=== PATIENT | male | born 2000 | race Caucasian/White ===

== ENCOUNTER → 2022-10-01 12:05 | Outpatient (CLI) | payer BC, SELFPAY ==
--- NOTE | ~2022-10-01 | XR_ITS ---
EXAMINATION: XR lumbar spine min 4V DATE: 10/01/2022 12:24 INDICATION: Low back pain TECHNIQUE: Anteroposterior, lateral, and bilateral oblique views of the lumbar spine, and cone-down l ateral view of the lumbosacral junction were obtained. COMPARISON: None. FINDINGS: Alignment is normal. Vertebral body heights are normal. Mild disc height loss at L3-L4 and L4-L5. No pars interarticularis defects. There is multilevel mild lumbar facet osteoarthritis most prominent on the right at L1-L2, L4-L5 and L5-S1 and on the left at L5-S1. IMPRESSION: 1. Mild lower lumbar spondylosis. Reviewed, dictated and finalized at location A.
== END ==
PROVIDERS: PCP Nurse Practitioner Family; Visit Provider Nurse Practitioner Family
DX: M54.50 Low back pain, unspecified (principal); M79.605 Pain in left leg; M47.896 Other spondylosis, lumbar region
CPT/HCPCS: 72110

== ENCOUNTER 2023-03-23 14:56 | Emergency (ER) | payer BC, SELFPAY ==
--- NOTE | 2023-03-23 15:01 | ED.URI ---
HPI - URI/Sore Throat General Chief Complaint: Upper Respiratory Infection Stated Complaint: sorethoat Source: patient, RN notes reviewed and old records reviewed Mode of arrival: ambulatory Limitations: no limitations History of Present Illness HPI Narrative: 23-year-old male presents to the [facility] with complaints of a sore throat that started 1 week ago. Has not taken anything. Reports sore throat is worse and morning, gets better after he drinks a glass of water. 2-3 days ago states that he started with a swollen lymph node on the left side. Denies any fevers, congestion, ear pain. No coughing. No chest pain Treatments prior to arrival: none Related Data Home Medications Medication Instructions Recorded Confirmed clonazepam 0.5 mg tablet 0.5 mg PO PRN PRN Anxiety 03/23/23 03/23/23 zaleplon 5 mg capsule 5 mg PO PRN PRN Insomnia 03/23/23 03/23/23 Allergies Allergy/AdvReac Type Severity Reaction Status Date / Time No Known Allergies Allergy Verified 03/23/23 14:58 Review of Systems Review of Systems: All systems reviewed & are unremarkable except as noted in HPI and below Constitutional: Constitutional: Reports no additional constitutional complaints Eyes: Eyes: Reports no additional eye complaints ENT: Reports as per HPI and Reports sore throat Cardiovascular: Cardiovascular: Reports no additional cardiovascular complaints, Denies chest pain and Denies dyspnea Respiratory: Respiratory: Reports no additional respiratory complaints, Denies chest congestion, Denies cough and Denies dyspnea Gastrointestinal: Gastrointestinal: Reports no additional gastrointestinal complaints, Denies abdominal pain, Denies nausea and Denies vomiting Musculoskeletal: Musculoskeletal: Reports no additional musculoskeletal complaints Integumentary/Breasts: Skin/Breast: Reports system reviewed and no additional complaints, except as docu Neurologic: Reports system reviewed and no additional complaints, except as documented Psychiatric: Psychiatric: Reports no additional psychiatric complaints Allergic/Immunologic: Allergic/Immunologic: Reports no additional allergic/immunologic complaints PMFSH Past Medical History Medical History Anxiety Depression with anxiety Low back pain radiating to left leg Lump in the abdomen OCD (obsessive compulsive disorder) Seasonal allergic rhinitis Family History Family History Father Hypertension Mother Depression Thyroid disorder Grandparent Diabetes mellitus Hypertension Acute myocardial infarction Cerebrovascular accident Grandparent Alcoholism Lung cancer Hypertension Social History Social History Smoking status: Current every day smoker Tobacco type: e-cigarettes/vaping Alcohol intake: current Alcohol use details: Occasionally Substance use: never Substance use type: does not use Lack of Transportation: No Lack of Food: Never True Current Housing: I Have Housing Concerned About Future Housing: No Difficulty Paying Gas/Electric Bills: No Difficulty Paying for Meds: No Currently Unemployed: No Education: High School Diploma/GED Difficulty w/ Childcare or Family Care: No Living arrangements: with family Additional living arrangements comments: Mom, Dad, Brother Occupation/Education: student Additional occupation/education comments: [employer] Gender identity (if verbalized by the patient): Male Comments At the time of my signature, I reviewed and agree with the nursing past medical, surgical, social, and family history. There is no relevant family history pertinent to the patient complaint. Exam Const: General: cooperative, healthy appearing, comfortable, no acute distress, well developed, alert and well nourished Nutritional Appearance: well nourish
[2023-03-23 15:09] VITALS: BP 132/72; PULSE 68; RESP 16; TEMP 36.4; O2SAT 98
== END 2023-03-23 15:20 | disposition home or self-care (01) ==
PROVIDERS: Emergency Provider Nurse Practitioner; PCP Nurse Practitioner Family
DX: J02.0 Streptococcal pharyngitis (principal); F17.290 Nicotine dependence, other tobacco product, uncomplicated; F41.9 Anxiety disorder, unspecified
CPT/HCPCS: 87880; 99213; G0463

== ENCOUNTER 2023-08-13 13:53 | Outpatient (CLI) | payer SELFPAY ==
--- NOTE | ~2023-08-13 | US_ITS ---
EXAMINATION: US soft tissue abdomen DATE: 08/13/2023 14:09 INDICATION: Intra-abdominal and pelvic swelling, mass and lump. TECHNIQUE: Multiple grayscale and Doppler ultrasound images of the abdomen were obtained. COMPARISON: None FINDINGS: There is a 5 x 2 x 3 mm subcutaneous hypoechoic mass in left abdomen in the patient's area of concern. IMPRESSION: 1. 5 mm subcutaneous mass in left abdomen in the patient's area of concern, likely benign. Reviewed, dictated and finalized at location E. IMPRESSION: 1. 5 mm subcutaneous mass in left abdomen in the patient's area of concern, lik amanda benign.
== END 2023-08-13 13:54 ==
PROVIDERS: PCP Nurse Practitioner Family; Visit Provider Nurse Practitioner Family
DX: R19.00 Intra-abdominal and pelvic swelling, mass and lump, unspecified site (principal)
CPT/HCPCS: 76705

== ENCOUNTER 2023-12-07 19:35 | Emergency (ER) | payer BC, SELFPAY ==
[2023-12-07 19:42] VITALS: BP 137/79; PULSE 67; RESP 20; TEMP 36.8; O2SAT 99
--- NOTE | 2023-12-07 19:57 | ED.DIZZY ---
HPI - Dizziness General Chief Complaint: Dizziness Stated Complaint: redness on face/lightheaded/chills Time Seen by Provider: 12/07/23 19:58 Mode of arrival: ambulatory Limitations: no limitations History of Present Illness HPI Narrative: 23-year-old male presents concern for an episode of dizziness and lightheadedness today. He reports he started started Seroquel and then the faxing, he took his 1st doses last night. He reports this afternoon/evening he had an episode of dizziness, then felt lightheaded and had episode of chills. He reports he feels normal now. He denies any shortness of breath, palpitations, chest pain. He denies headache. He denies upper respiratory symptoms. MD elicited complaint: dizziness Related Data Allergies Allergy/AdvReac Type Severity Reaction Status Date / Time No Known Allergies Allergy Verified 12/07/23 19:55 Review of Systems Review of Systems: CONSTITUTIONAL: Denies malaise, sweats, or fever. Reports an episode of chills EYES: Denies visual changes ENT: Denies rhinorrhea, congestion, sinus pain, otalgia or sore throat. CARDIOVASCULAR: Denies chest pain, palpitations, or edema. RESPIRATORY: Denies cough or dyspnea. GASTROINTESTINAL: Denies abdominal pain, nausea, vomiting MUSCULOSKELETAL: Denies back pain, joint pain, or myalgia. NEUROLOGIC: Denies numbness, weakness, or headache.. Reports an episode of dizziness and lightheadedness PSYCHIATRIC: Reports anxiety and depression. All systems reviewed & are unremarkable except as noted in HPI and below PMFSH Past Medical History Medical History Anxiety Depression Depression with anxiety Insomnia Low back pain radiating to left leg Lump in the abdomen OCD (obsessive compulsive disorder) Paruresis Seasonal allergic rhinitis Vaping nicotine dependence, tobacco product Family History Family History Father Hypertension Mother Depression Thyroid disorder Grandparent Diabetes mellitus Hypertension Acute myocardial infarction Cerebrovascular accident Grandparent Alcoholism Lung cancer Hypertension Social History Social History Smoking status: Current every day smoker Tobacco type: e-cigarettes/vaping Alcohol intake: current Alcohol use details: Occasionally Substance use: never Substance use type: does not use Lack of Transportation: No Lack of Food: Never True Current Housing: I Have Housing Concerned About Future Housing: No Difficulty Paying Gas/Electric Bills: No Difficulty Paying for Meds: No Currently Unemployed: No Education: High School Diploma/GED Difficulty w/ Childcare or Family Care: No Living arrangements: with family Additional living arrangements comments: Mom, Dad, Brother Occupation/Education: student Additional occupation/education comments: [employer] Gender identity (if verbalized by the patient): Male Comments At time of signature, agree with nursing past medical, surgical, social and family history. There is no relevant family history pertinent to the presenting complaint Exam Narrative: GENERAL: Well-appearing, well-nourished, and in no acute distress. HEAD: Normocephalic, atraumatic. EYES: PERRLA, sclera clear, and EOMI. No nystagmus. ENT: Nares clear, turbinates pink, no rhinorrhea or epistaxis. Mucous membranes moist. TM pearly alba with sharp light reflex bilaterally; no tragal tenderness. Oropharynx without erythema or lesions. Tonsils not enlarged and without exudate. NECK: Supple CHEST: No respiratory distress. Clear to auscultation. No bony deformities, no asymmetry. Speaks in full sentences. HEART: Regular rate and rhythm. No murmur heard. Normal peripheral pulses. EXTREMITIES: Normal range of motion. No edema. Normal strength and sensation. SKIN: Warm, dry, no visible rash. NEURO: Alert and oriented x3. No focal deficits. Cr
== END 2023-12-07 20:10 | disposition home or self-care (01) ==
PROVIDERS: Emergency Provider Nurse Practitioner; PCP Family Medicine
DX: R42 Dizziness and giddiness (principal); F17.290 Nicotine dependence, other tobacco product, uncomplicated
CPT/HCPCS: 99213; G0463

== ENCOUNTER 2024-03-07 12:58 | Emergency (ER) | payer BC, SELFPAY ==
[2024-03-07 13:09] VITALS: BP 130/64; PULSE 54; RESP 16; TEMP 36.4; O2SAT 99
--- NOTE | 2024-03-07 13:14 | ED.URI ---
HPI - URI/Sore Throat General Chief Complaint: Upper Respiratory Infection Stated Complaint: upper respiratory History of Present Illness HPI Narrative: 23 y/o male presented for c/o sore throat, cough, nasal congestion/drainage, body aches, and nausea x3 days. Taking Tylenol PM. Denies sob, wheezing, vomiting or lethargy. Related Data Home Medications Medication Instructions Recorded Confirmed No Home Medications 03/07/24 03/07/24 Allergies Allergy/AdvReac Type Severity Reaction Status Date / Time No Known Allergies Allergy Verified 03/07/24 13:05 Review of Systems Review of Systems: CONSTITUTIONAL: Reports body aches, denies fever, chills, or sweats. EYES: Denies visual changes, redness, or discharge. ENT: Reports sore throat, rhinorrhea, congestion, denies otalgia. CARDIOVASCULAR: Denies chest pain, palpitations, or edema. RESPIRATORY: Denies dyspnea. GASTROINTESTINAL: Reports nausea and decreased appetite Denies abdominal pain, vomiting, or diarrhea. SKIN: Denies rash, itching, or wounds. MUSCULOSKELETAL: Denies back pain, joint pain, or myalgia. NEUROLOGIC: Denies headache PMFSH Past Medical History Medical History ADHD (attention deficit hyperactivity disorder), inattentive type Anxiety Depression Depression with anxiety Insomnia Low back pain radiating to left leg Lump in the abdomen OCD (obsessive compulsive disorder) Paruresis Seasonal allergic rhinitis Vaping nicotine dependence, tobacco product Family History Family History Father Hypertension Mother Depression Thyroid disorder Grandparent Diabetes mellitus Hypertension Acute myocardial infarction Cerebrovascular accident Grandparent Alcoholism Lung cancer Hypertension Social History Social History Smoking status: Current every day smoker Tobacco type: e-cigarettes/vaping Alcohol intake: current Alcohol use details: Occasionally Substance use: never Substance use type: does not use Lack of Transportation: No Lack of Food: Never True Current Housing: I Have Housing Concerned About Future Housing: No Difficulty Paying Gas/Electric Bills: No Difficulty Paying for Meds: No Currently Unemployed: No Education: High School Diploma/GED Difficulty w/ Childcare or Family Care: No Living arrangements: with family Additional living arrangements comments: Mom, Dad, Brother Occupation/Education: student Additional occupation/education comments: [employer] Gender identity (if verbalized by the patient): Male Exam Narrative: GENERAL: Iwel-appearing, no acute distress. EYES: conjunctivae clear ENT: Mucous membranes moist. TMs erythematous with normal light reflex bilaterally; no tragal tenderness, denies ear pain. Oropharynx mildly erythematous without lesions. Tonsils enlarged 1+ and without exudate. No drooling, no hoarseness, no trismus, uvula midline. No tripod positioning, hot potato voice, or soft palate swelling. NECK: Supple. No lymphadenopathy CHEST: Clear to auscultation, breath sounds equal. No respiratory distress, speaks in full sentences. HEART: Regular rate and rhythm. No murmur heard. SKIN: Warm, dry, no rash. NEURO: Alert and oriented x3. Course Course Emergency Course: Patient is aware of diagnosis, understands and agrees to treatment plan. Anticipatory guidance given. Patient agrees to follow-up as directed and is aware of reasons to seek care at the emergency department. Portions of this record may have been created with voice recognition software Level of Care: Express Care Visit Vital Signs Vital signs: Vital Signs Temperature 97.6 F 03/07/24 13:09 Pulse Rate 54 L 03/07/24 13:09 Respiratory Rate 16 03/07/24 13:09 Blood Pressure 130/64 03/07/24 13:09 Pulse Oximetry 99 03/07/24 13:09 Oxygen Delivery Room
[2024-03-07 13:30] LABS: EDSTREPNEGPOS1 Negative (Negative)
[2024-03-07 13:37] LABS: EDCOVIDSCREEN Negative (Negative); EDINFLUASCREEN Negative (Negative); EDINFLUBSCREEN Negative (Negative)
== END 2024-03-07 13:36 | disposition home or self-care (01) ==
PROVIDERS: Emergency Provider Nurse Practitioner Family; PCP Nurse Practitioner Family
DX: J06.9 Acute upper respiratory infection, unspecified (principal); Z20.822 Contact with and (suspected) exposure to COVID-19; F17.290 Nicotine dependence, other tobacco product, uncomplicated
CPT/HCPCS: 87081; 87426; 87804; 87880; 99213; G0463